=== PATIENT | male | born 1945 | race Caucasian/White ===

== ENCOUNTER 2017-11-14 07:52 | Day surgery (SDC) | payer MEDICARE, OTHER ==
[~2017-11-14 07:52] MED LIST: Lactated Ringers 1,000 ML IV SCH; Sodium Chloride 0.9% 10 ML Syringe FLUSH PRN
[2017-11-14] MEDS ORDERED: Glycopyrrolate 0.2 MG/ML 2 ML SDV IV ONE (09:00)
[2017-11-14] MEDS ORDERED: Propofol 200 MG/20 ML SDV IV ONE (09:00)
[2017-11-14] MEDS ORDERED: Midazolam 1 MG/ML 2 ML SDV IV ONE (09:00)
[2017-11-14] MEDS ORDERED: fentaNYL 100 MCG/2 ML SDV IV ONE (09:00)
--- NOTE | 2017-11-14 10:19 | PCM.OPNOTE ---
- General Post-Op/Procedure Note Date of Surgery/Procedure: 11/14/17 Operative Procedure(s): c scope Findings: normal exam Pre Op Diagnosis: screening Post-Op Diagnosis: nl exam Anesthesia Technique: MAC Primary Surgeon: Anshul Rockwell Anesthesia Provider: Roque Camargo Pathology: none Complications: None Condition: Good Free Text/Narrative:: see dictation
--- NOTE | 2017-11-14 13:40 | OR ---
DATE OF OPERATION: 11/14/2017 SURGEON: Anshul Rockwell MD PROCEDURE PERFORMED: Colonoscopy. PREOPERATIVE DIAGNOSIS: Need for screening C scope. POSTOPERATIVE DIAGNOSIS: Normal exam. INDICATIONS FOR PROCEDURE: This is a 72-year-old white male, who presents now for a followup colonoscopy. Last colonoscopy was 10 years ago. He is currently without complaints. He was offered and accepted same. DESCRIPTION OF PROCEDURE: After an excellent IV sedation was administered, digital rectal exam was performed. No marked abnormality was noted. Flexible colonoscope was inserted and advanced to the cecum without difficulty. The prep was excellent. The following findings were noted: Ascending colon, unremarkable. Transverse colon, unremarkable. Descending colon, unremarkable. Sigmoid and rectum, unremarkable. Colon was deflated. The scope was removed. The patient tolerated the procedure well, and was taken to recovery room. RECOMMENDATIONS: Repeat colonoscopy in 10 years on a p.r.n. basis. /[id number] /MODL
== END 2017-11-14 11:39 | disposition home or self-care (01) ==
LOC: FB.SDS 07:52
PROVIDERS: ATTEND Surgery
DX: K59.00 Constipation, unspecified (principal); E78.4 Other hyperlipidemia; L57.0 Actinic keratosis; Z85.828 Personal history of other malignant neoplasm of skin; Z91.09 Other allergy status, other than to drugs and biological substances; Z79.899 Other long term (current) drug therapy; Z80.0 Family history of malignant neoplasm of digestive organs
CPT/HCPCS: 00812; 45378; 93005; J2250; J2704; J3010; J7120; J3490

== ENCOUNTER 2024-08-26 08:27 | Day surgery (SDC) | payer MEDICARE, OTHER ==
[2024-08-26] MEDS ORDERED: Lidocaine 2% 100 MG/5 ML Syringe IVPUSH ONE (08:28)
[2024-08-26] MEDS ORDERED: Propofol 200 MG/20 ML SDV IV ONE (08:28)
[2024-08-26] MEDS ORDERED: Sodium Chloride 0.9% 10 ML Syringe FLUSH PRN (08:30)
[2024-08-26] MEDS: Lactated Ringers 1,000 ML IV SCH (09:30)
[2024-08-26] MEDS: Simethicone Drops 40 MG/0.6 ML 30 ML Bottle ONE (10:06)
[2024-08-28 23:22] LABS: LACTOFERRIN,FECAL BY ELISA Negative (Negative)
[2024-08-29 21:27] LABS: ADENOVIRUS 40/41 PCR Not Detected; ASTROVIRUS PCR Not Detected; CAMPYLOBACTER PCR Not Detected; CRYPTOSPORIDIUM PCR Not Detected; CYCLOSPORA CAYETANENSIS PCR Not Detected; ENTAMOEBA HISTOLYTICA PCR Not Detected; ENTEROAGGREGATIVE E. COLI PCR Not Detected; ENTEROPATHOGENIC E. COLI PCR Not Detected; ENTEROTOXIGENIC E. COLI PCR Not Detected; GIARDIA LAMBLIA PCR Not Detected; NOROVIRUS GI/GII PCR Not Detected; PLESIOMONAS SHIGELLOIDES PCR Not Detected; ROTAVIRUS A PCR Not Detected; SALMONELLA PCR Not Detected; SAPOVIRUS PCR Not Detected; SHIG/ENTEROINVASIVE E COLI PCR Not Detected; SHIGA TOXIN-PRODUC E. COLI PCR Not Detected; VIBRIO CHOLERAE PCR Not Detected; VIBRIO PCR Not Detected; YERSINIA ENTEROCOLITICA PCR Not Detected
== END 2024-08-26 12:15 | disposition home or self-care (01) ==
LOC: FB.SDS 08:27
PROVIDERS: ATTEND Surgery
DX: K64.2 Third degree hemorrhoids (principal); Z86.0101 Personal history of adenomatous and serrated colon polyps; Z80.0 Family history of malignant neoplasm of digestive organs; K42.9 Umbilical hernia without obstruction or gangrene; K21.9 Gastro-esophageal reflux disease without esophagitis; E78.00 Pure hypercholesterolemia, unspecified; I10 Essential (primary) hypertension
CPT/HCPCS: 00811; 45380; 83630; 87507; 88305; 99100; A9270; J2704; J7120